=== PATIENT | male | born 1955 | race Caucasian/White ===

== ENCOUNTER 2016-06-06 08:17 | Day surgery (SDC) | payer OTHER ==
[~2016-06-06] VITALS: Ht 172.7 cm; Wt 90.7 kg
[~2016-06-06 08:17] MED LIST: 0.9% Sodium Chloride 1,000 ML IV SCH; ASPI325T32 PO; FENO145T19 PO; LOSA50TA37 PO; MELO15TA14 PO; PRA20 PO; Sodium Chloride LOK Flush 10 mL Syringe IV PRN; TADA20TA PO; fentaNYL-PF 50 mCg/mL 2 mL Inj IVPUSH PRN
[2016-06-06 09:14] VITALS: BP 147/80; PULSE 74; RESP 14; O2SAT 99
[2016-06-06] MEDS ORDERED: 0.9% Sodium Chloride 1,000 ML IV ONE (09:29)
[2016-06-06 10:05] VITALS: BP 147/79; PULSE 78; RESP 16; O2SAT 98
[2016-06-06 10:14] VITALS: BP 132/79; PULSE 85; RESP 16; O2SAT 98
[2016-06-06 10:20] VITALS: BP 148/76; PULSE 73; RESP 16; O2SAT 98
--- NOTE | 2016-06-06 10:44 | ENDO ---
[address] [address] ENDOSCOPY PROCEDURE PATIENT: ZOE HUGHES : 1955 MR#: [id number] ADMIT: 06/06/2016 JOB ID: [id number] DATE: 06/06/2016 PROCEDURE: Colonoscopy. INDICATION: The patient with a personal history of colon polyps. The patient's ASA classification is 2. Mallampati score is 2. MEDICATIONS: 1. Versed 5 mg. 2. Fentanyl 100 mcg. INSTRUMENT USED: PCF H 180 AL. PREPARATION QUALITY: Was good. PROCEDURE DETAILS: After informed consent was obtained, the patient was brought into the GI suite, where he was placed on oxygen via nasal cannula and monitored with continuous pulse oximeter, telemetry and blood pressure monitoring. A time-out was performed. Then, he was placed in the left lateral decubitus position and medications were administered for sedation. Digital rectal examination was performed, which was unremarkable. The colonoscope was then inserted into the rectum and advanced under direct visualization to the cecum, which was identified by the presence of the ileocecal valve and appendiceal orifice. Once the cecum was reached, colonoscope was withdrawn back into the rectum as the mucosa and lumen were examined. In the rectum, retroflexion was performed. Following retroflexion, remaining air in the rectum was suctioned and procedure was completed. FINDINGS: 1. In the cecum there was a diminutive polyp that was removed with cold biopsy forceps. 2. In the ascending colon, there were two polyps ranging in size from 4 mm to 5 mm. Both polyps were removed using a cold snare. IMPRESSION: 1. Cecal polyp. 2. Two ascending colon polyps. RECOMMENDATIONS: 1. Repeat colonoscopy in three years. 2. Fiber rich diet. 3. Followup in GI clinic as needed. COMPLICATIONS: None. ESTIMATED BLOOD LOSS: Less than 5 mL.
--- NOTE | 2016-06-07 13:47 | PATH ---
SURGICAL PATHOLOGY Attending Physician:Robert Germain CASE STATUS: Signed Out PATIENT NAME: ZOE HUGHES PID: [id number] : 1955 DATE COLLECTED:06/06/2016 16:44 SPECIMEN: 1: Colon, Biopsy 2: Colon, Biopsy CLINICAL HISTORY: 1. CECAL POLYP X1 2. ASCENDING COLON POLYP X2 FINAL DIAGNOSIS: 1. Cecum, Polyp, Biopsy: Tubular adenoma; negative for high-grade dysplasia. 2. Ascending Colon, Polyp, Biopsy: Portions of tubular adenoma x3; negative for high grade dysplasia. ICD10: K63.5 GROSS DESCRIPTION: The specimen is received in two formalin filled containers labeled with the patient's name. 1). The specimen is sublabeled "cecal polyp x1" and consists of a 0.4 x 0.3 x 0.2 CM portion of tissue which is entirely submitted in cassette 1A. 2). The specimen is sublabeled "ascending colon polyp x2" and consists of 3 portions of tissue which aggregate to 0.4 x 0.4 x 0.3 CM. The specimen is entirely submitted in cassette 2A. 06/06/2016 [facility] ICD-9 CODES: CPT CODES: 1: 08262 2: 49548 Electronically Signed Out Erika Paula MD [facility] Pathology [facility] [address], [place] [address] Technical component performed at [facility], [facility] [address], [place], [address]
== END 2016-06-06 23:59 | disposition home or self-care (01) ==
LOC: END 08:17
PROVIDERS: ATTEND Internal Medicine Gastroenterology
DX: Z12.11 Encounter for screening for malignant neoplasm of colon (principal); Z86.010 Personal history of colon polyps; D12.2 Benign neoplasm of ascending colon; D12.0 Benign neoplasm of cecum; I10 Essential (primary) hypertension; E78.5 Hyperlipidemia, unspecified; Z87.19 Personal history of other diseases of the digestive system; Z79.82 Long term (current) use of aspirin
CPT/HCPCS: 45380; 45385; G0500; J7030